=== PATIENT | male | born 1980 | race Caucasian/White ===

== ENCOUNTER 2023-12-31 06:16 | Day surgery (SDC) | payer OTHER ==
[~2023-12-31] VITALS: Ht 15.2 cm; Wt 74.1 kg
[~2023-12-31 06:16] MED LIST: ESCI20TA87 PO; MIRT-149 PO; RINGERS SOLUTION,LACTATED 0 ML IV ONE
[2023-12-31] MEDS ORDERED: RINGERS SOLUTION,LACTATED 1,000 ML IV ONE ×2 (06:22→06:30)
[2023-12-31] MEDS ORDERED: CeFAZolin 2 GM/DEXTROSE 50 ML IV ONE ×2 (07:00→07:23)
[2023-12-31] MEDS: RINGERS SOLUTION,LACTATED 1,000 ML IV ONE (07:12)
[2023-12-31] MEDS ORDERED: MUPIROCIN CALCIUM 2% 22 GM OINTMENT ONE (07:13)
[2023-12-31] MEDS: CHLORHEXIDINE GLUCONATE 2% TOWELETTE [2'S/6'S] TP ONE (07:18)
[2023-12-31] MEDS: LIDOCAINE/PF 2% 5 ML VIAL ONE (08:40)
[2023-12-31] MEDS: BUPIVACAINE HCL/PF 0.5% 30 ML VIAL ONE (08:40)
[2023-12-31] MEDS ORDERED: FentaNYL CITRATE PF 100 MCG/2 ML VIAL IVP PRN (08:45)
[2023-12-31] MEDS ORDERED: HYDROmorphone HCL 2 MG/ML SYRINGE IVP PRN (08:45)
[2023-12-31] MEDS ORDERED: OxyCODONE HCL/ACETAMINOPHEN 5-325 MG TABLET PO ONE (09:30)
[2023-12-31] MEDS: OxyCODONE HCL/ACETAMINOPHEN 5-325 MG TABLET PO ONE (10:05)
[2023-12-31] MEDS ORDERED: LIDOCAINE/PF 2% 5 ML VIAL IM ONE (12:00)
[2023-12-31] MEDS ORDERED: PROPOFOL 1% ISO-OSM 1000 MG/100 ML BOTTLE IV ONE (12:00)
[2023-12-31] MEDS ORDERED: PROPOFOL 1% 20 ML VIAL IVP ONE (12:00)
[2023-12-31] MEDS ORDERED: FentaNYL CITRATE PF 100 MCG/2 ML VIAL IVP ONE (12:00)
[2023-12-31] MEDS ORDERED: MIDAZOLAM HCL 2 MG/2 ML VIAL IVP ONE (12:00)
[2023-12-31] MEDS ORDERED: OXYGEN THERAPY IH SCH (20:00)
== END 2023-12-31 10:50 | disposition home or self-care (01) ==
LOC: SURGERY 06:16
PROVIDERS: ATTEND Orthopaedic Surgery
DX: S51.842A Puncture wound with foreign body of left forearm, initial encounter (principal); F32.A Depression, unspecified; I10 Essential (primary) hypertension; Z87.891 Personal history of nicotine dependence; Z90.89 Acquired absence of other organs; Z98.890 Other specified postprocedural states; Z88.8 Allergy status to other drugs, medicaments and biological substances; Z79.899 Other long term (current) drug therapy; Z82.49 Family history of ischemic heart disease and other diseases of the circulatory system; Z80.9 Family history of malignant neoplasm, unspecified; X58.XXXA Exposure to other specified factors, initial encounter; Y93.89 Activity, other specified; Y92.89 Other specified places as the place of occurrence of the external cause; Y99.8 Other external cause status
CPT/HCPCS: 25248; J3490 ×2; J2704 ×2; J3010; J2250; J7120; J0690